=== PATIENT | female | born 1960 | race Caucasian/White ===

== ENCOUNTER 2020-06-07 12:23 | Outpatient (REF) | payer OTHER, SELFPAY ==
[2020-06-07 13:08] LABS: MANUAL DIFF FLAG NO
[2020-06-07 13:19] LABS: Basophils Percent Auto 0.5 % (0-2); Eosinophils Absolute Auto 0.1 X10*3/uL (0.0-0.4); Hematocrit 40.5 % (37-47); Imm Gran Abs Auto 0.02 X10*3/uL (0.00-0.03); Imm Gran Pct Auto 0.3 % (0.0-0.4); Lymphocytes Absolute Auto 1.2 X10*3/uL (1.2-4.9); Lymphocytes Percent Auto 19.7 % (20-40); Mean Corpuscular HGB Conc 32.1 g/dl (31.0-35.0); Mean Corpuscular Hemoglobin 29.1 pg (27.0-33.0); Mean Corpuscular Volume 90.8 fL (80-98); Mean Platelet Volume 12.9 fL (9.4-12.3); Monocytes Absolute Auto 0.4 X10*3/uL (0.1-1.2); Monocytes Percent Auto 6.8 % (2-11); Neutrophils Absolute Auto 4.4 X10*3/uL (2.0-8.3); Neutrophils Percent Auto 71.7 % (45-73); Platelet Count 265 X10*3/uL (160-400); Red Blood Count 4.46 X10*6/uL (4.20-5.50); Red Cell Distribution Width 17.7 % (11.0-16.0); White Blood Count 6.2 X10*3/uL (4.8-10.8)
[2020-06-07 13:22] LABS: Alanine Aminotransferase 37 U/L (0-31); Albumin Level 3.6 g/dL (3.5-5.0); Alkaline Phosphatase 136 U/L (39-117); Anion Gap 14 (12-20); Aspartate Amino Transferase 25 U/L (5-31); Bilirubin Total 1.1 mg/dL (0.0-1.0); Blood Urea Nitrogen 12 mg/dL (9-16); Calcium 8.5 mg/dL (8.4-10.2); Carbon Dioxide 28 mmol/L (22-29); Chloride 107 mmol/L (96-108); Estimated Glomerular Filt Rate > 60; Glucose Random 103 mg/dL (60-115); Magnesium 1.7 mg/dL (1.6-2.6); Potassium 3.4 mmol/L (3.3-5.1); Sodium 146 mmol/L (135-145)
[2020-06-07 13:42] LABS: Thyroid Stimulating Hormone 3.84 uIU/mL (0.32-4.0)
[2020-06-07 14:11] LABS: Erythrocyte Sedimentation Rate 13 MM/HR (0-20)
[2020-06-07 14:54] LABS: Folate 2.2 ng/mL (> or = 4.0); Vitamin B12 234 pg/mL (200-900)
== END 2020-06-07 12:24 | disposition home or self-care (01) ==
LOC: HO.LNP 12:23
PROVIDERS: Visit Provider Internal Medicine
DX: G62.9 Polyneuropathy, unspecified (principal)
CPT/HCPCS: 80053; 82607; 82746; 83735; 84443; 85025; 85652

== ENCOUNTER 2020-06-16 | Outpatient (REF) | payer OTHER, SELFPAY ==
[2020-06-16 17:05] LABS: Alanine Aminotransferase 25 U/L (0-31); Albumin Level 3.7 g/dL (3.5-5.0); Alkaline Phosphatase 141 U/L (39-117); Anion Gap 19 (12-20); Aspartate Amino Transferase 24 U/L (5-31); Bilirubin Total 1.1 mg/dL (0.0-1.0); Blood Urea Nitrogen 13 mg/dL (9-16); Calcium 9.1 mg/dL (8.4-10.2); Carbon Dioxide 28 mmol/L (22-29); Chloride 103 mmol/L (96-108); Estimated Glomerular Filt Rate 59; Glucose Random 83 mg/dL (60-115); Potassium 3.5 mmol/L (3.3-5.1); Sodium 146 mmol/L (135-145); Total Protein 6.3 g/dL (6.5-8.0)
[2020-06-21 17:16] LABS: Vitamin B6 6.5 ng/mL (2.1-21.7)
== END 2020-06-16 00:01 | disposition home or self-care (01) ==
LOC: HO.HMGCLNP
PROVIDERS: Visit Provider Internal Medicine
DX: K91.2 Postsurgical malabsorption, not elsewhere classified (principal); E87.6 Hypokalemia
CPT/HCPCS: 80053; 84207

== ENCOUNTER 2020-09-10 17:55 | Outpatient (REF) | payer OTHER, SELFPAY ==
--- NOTE | ~2020-09-10 | MR_ITS ---
EXAMINATION: MR HEAD/BRAIN WITHOUT CONTRAST CLINICAL INFORMATION: Imbalance. Ataxia. COMPARISON: None TECHNIQUE: Routine unenhanced MRI of the brain obtained on a 1.5 Teresa MR platform. FINDINGS: No intracranial hemorrhage, tumors or acute infarcts are noted. The ventricles and sulci are normal in size and configuration. A minimal number of nonspecific punctate supratentorial scattered white matter T2 hyperintensities are identified and are of uncertain clinical significance as similar findings are a frequently encountered asymptomatic finding. No perivenular lesions are identified. No lesions of the middle cerebellar peduncles are noted. Susceptibility-weighted images reveal no evidence of acute or chronic hemorrhage within the brain parenchyma. The craniocervical junction and cerebellar tonsils are normal in configuration. No suspicious marrow abnormalities are identified. The visualized internal auditory canals and temporal bone labyrinths are normal in appearance. No mastoid effusions are identified. A 9 mm diameter focus which may represent an incidental mucosal retention cyst is noted within the posterior-inferior aspect of the left maxillary sinus. This finding may alternatively represent a small focus retained secretions. The orbits and globes are normal in appearance. An empty sella configuration of the pituitary with convex inward configuration of the pituitary is noted, a frequently encountered asymptomatic normal anatomic variant. Partial visualization is made of at least mild posterior broad-based disc-osteophyte complexes at C4-C5 and C5-C6 noted only on the sagittal T1-weighted images are not fully evaluated. MR/MR head/brain wo con IMPRESSION: Normal unenhanced MRI of the brain aside from partial visualization of at least mild posterior broad-based disc-osteophyte complexes at C4-C5 and C5-C6 which could contribute to central or foraminal stenoses at these levels. These findings may be further evaluated with that dedicated MRI of the cervical spine as clinically indicated. No intracranial abnormalities.
== END 2020-09-10 17:56 | disposition home or self-care (01) ==
LOC: HO.MRI 17:55
PROVIDERS: Visit Provider Psychiatry & Neurology Neurology
DX: R27.0 Ataxia, unspecified (principal)
CPT/HCPCS: 70551

== ENCOUNTER → 2021-04-16 09:52 | Outpatient (BNVA) | payer OTHER, SELFPAY | PROVIDERS: PCP Internal Medicine; Visit Provider Psychiatry & Neurology Neurology | DX: R26.9 Unspecified abnormalities of gait and mobility (principal); G62.9 Polyneuropathy, unspecified | CPT/HCPCS: 99212 ==

== ENCOUNTER 2021-08-20 07:59 | Outpatient (REF) | payer OTHER, SELFPAY ==
--- NOTE | 2021-08-20 08:03 | EMG_ITS ---
Right tibial and peroneal motor studies were performed. Right superficial, peroneal, and sural sensory studies were performed. Tibial H-reflex was obtained and paraspinal muscles were tested with a needle. 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 MD WILBER Ramirez/HANNAH / [id number]
== END 2021-08-20 08:00 | disposition home or self-care (01) ==
LOC: HO.NEURO 07:59
PROVIDERS: PCP Internal Medicine; Visit Provider Psychiatry & Neurology Neurology
DX: G62.9 Polyneuropathy, unspecified (principal); R26.9 Unspecified abnormalities of gait and mobility
CPT/HCPCS: 95886; 95909